=== PATIENT | female | born 1990 | race African-American/Black ===

== ENCOUNTER 2016-04-30 21:05 | Emergency (ER) | payer OTHER ==
--- NOTE | 2016-04-30 21:32 | PDOC ---
Rapid Medical Evaluation Time Seen by Provider: 04/30/16 21:08 Medical Evaluation: 04/30/16 21:26 I have performed a brief in-person evaluation of this patient. Ms. Parmar is a 25 yo F h/o PCOS (s/p right oophorectomy due to hemorrhage May 2015), GERD presenting with a complaint of vaginal pain and bleeding No trauma Symptoms began in the middle of the day Had some discharge, thought it was a yeast infection She tried using topical cream to treat This did not help, but rather worsened She began spotting today which caused her concern (+) sexually active (-) STD Began 2 days ago Unsure if she is LMP: 04/09 Pertinent physical exam findings: No lower abdominal tenderness to palpation I have ordered the following: The patient will proceed to the ED for further evaluation.
[2016-04-30 21:43] VITALS: BP 107/88; PULSE 103; TEMP 98.2; BMI 23.0
[2016-04-30] MEDS ORDERED: AZITHROMYCIN 250 MG TABLET (FP) PO ONE (23:02)
--- NOTE | 2016-04-30 23:12 | PDOC ---
History of Present Illness - General Chief Complaint: Vaginal Bleeding Stated Complaint: PAIN Time Seen by Provider: 04/30/16 21:08 - History of Present Illness Initial Comments: 04/30/16 23:03 CHIEF COMPLAINT: vaginal bleeding/discharge/pain HISTORY OF PRESENT ILLNESS: 25 yo F with hx of PCOS, R oopherectomy, GERD, ADHD presents to ED with vaginal pain/irritation x 2 days and bleeding today. Patient states she started feeling irritation and itching two days ago and thought it was a yeast infection. She used Monistat yesterday but with no relief, "in fact it was worse." Patient states she had some spotting today and was concerned. Her LMP was 04/09, she is not using control and she is sexually active with one partner. She denies any urinary frequency, pain, hematuria. PAST MEDICAL HISTORY: as per HPI FAMILY HISTORY: Denies SOCIAL HISTORY:Denies tobacco, alcohol, illicit drug use. SURGICAL HISTORY: Denies ALLERGIES: Sulfa REVIEW OF SYSTEMS General/Constitutional: Denies fever or chills. Denies weakness, weight change. HEENT: Denies change in vision. Denies ear pain or discharge. Denies sore throat. Cardiovascular: Denies chest pain or shortness of breath. Respiratory: Denies cough, wheezing, or hemoptysis. Gastrointestinal: Denies nausea, vomiting, diarrhea or constipation. Denies rectal bleeding. Genitourinary: Minimal vaginal bleeding today. Vaginal pain/irritation x 2 days. Denies dysuria, frequency, or change in urination. Musculoskeletal: Denies joint or muscle swelling or pain. Denies neck or back pain. Skin and breasts: Denies rash or easy bruising. Neurologic: Denies headache, vertigo, loss of consciousness, or loss of sensation. PHYSICAL EXAM General Appearance: Well-appearing, appropriately dressed. No apparent distress , no intoxication. HEENT: EOMI, PERRLA, normal ENT inspection, normal voice, TMs normal, pharynx normal. No conjunctival pallor. No photophobia, scleral icterus. Neck: Supple. Trachea midline. No tenderness, rigidity, carotid bruit, stridor , lymphadenopathy, or thyromegaly. Respiratory/Chest: Lungs CTAB. Cardiovascular: RRR. S1, S2. Gastrointestinal/Abdominal: Normal bowel sounds. Abdomen soft, non-distended. No tenderness or rebound tenderness. No organomegaly, pulsatile mass, guarding , hernia, hepatomegaly, splenomegaly. Pelvic: Positive chandelier's sign. No lesions, excoriations, or fissures. External genitalia normal without lesions. Vaginal vault with copious thick, yellow discharged tinged with blood. Cervix is long and closed. Uterus is nontender and normal in size. Mild left adnexal tenderness. Lymphatic: No adenopathy, tenderness. Musculoskeletal/Extremities: Normal inspection. FROM of all extremities, normal capillary refill. Pelvis Stable. No CVA tenderness. No tenderness to extremities, pedal edema, swelling, erythema or deformity. Integumentary: Appropriate color, dry, warm. No cyanosis, erythema, jaundice or rash Neurologic: spanish instructor II-XII intact. Fully oriented, alert. Appropriate mood/affect. Motor strength 5/5. No appreciable EOM palsy, facial droop or sensory deficit. 05/01/16 00:20 Past History - Past Medical History Allergies/Adverse Reactions: Allergies Allergy/AdvReac Type Severity Reaction Status Date / Time Sulfa (Sulfonamide Allergy Verified 04/30/16 21:27 Antibiotics) Home Medications: Ambulatory Orders Atomoxetine HCl [Strattera] 80 mg PO DAILY 04/30/16 Dexlansoprazole [Dexilant] 60 mg PO DAILY 04/30/16 GI Disorders: Yes (gerd) Other medical history: pcos - Psycho/Social/Smoking Cessation Hx Suicidal Ideation: No Smoking History: Never smoked *Physical Exam - Vital Signs Last Vital Signs Temp Pulse Resp BP Pulse Ox 98.2 F 103 H 18 107/88 103 H 04/30/16 21:29 04/30/16 21:29 04/30/16 21:29 04/30/16 21:29 04/30/16 21:29 ED Treatment Course - ADDITIONAL ORDERS Additional order review: Laboratory Results 04/30/16 22:00 Urine HCG, Qual Negative - RADIOLOGY Radiology Studies Ordered: Category Date Time Status TRANSVAGINAL ULTRASOUND US [US] Stat Ultrasound 04/30/16 23:01 Ordered Medical Decision Making - Medical Decision Making 04/30/16 23:12 25 yo F with hx of PCOS, R oopherectomy, GERD, ADHD presents to ED with vaginal pain/irritation x 2 days and minimal bleeding today. -UA, UCx, UPreg Patient is marked tender on pelvic exam with positive Chandelier's sign, will treat empirically for PID. -250 mg ceftriaxone -1g Azithromycin In addition patient has thick, white/yellow curd-liked discharge to vaginal vault. Discharge due to possible yeast infection vs monistat use. Will treat for vaginal candidiasis. -150 mg fluconazole Given patient's hx of R oopherectomy secondary to hemorrhage, will eval with U/ S to r/o ovarian pathology. -TV U/S Patient declines TV U/S, states she has too much pain for another intravaginal exam. Will change to pelvic U/S. -Pelvic U/S. Labs: UA: +RBC, otherwise unremarkable 05/01/16 01:34 Ultrasound results: FINDINGS: Transabdominal pelvic ultrasound:Uterus is anteverted and measures 9.0centimeters in length. The endometrium is 2millimeters in thickness which is normal. There are no fibroids. Left ovary measures 4.0centimeters in length contains a 3.0 cm simple cyst but demonstrates normal flow. There is no significant free fluid. Pelvic duplex: There is normal arterial and venous flow in the left ovary. IMPRESSION: 3 cm simple left ovarian cyst without torsion or free fluid. Read by: Tc Miller MD Advised patient to f/u with fleet service manager this week. Advised patient of signs and symptoms for return to ER; patient verbalized understanding and agrees to plan. *DC/Admit/Observation/Transfer Diagnosis at time of Disposition: Candidiasis of vagina, Acute infection of female upper reproductive tract - Discharge Dispostion Disposition: HOME Condition at time of disposition: Stable Admit: No - Patient Instructions Printed Discharge Instructions: DI for Pelvic Inflammatory Disease, DI for Vaginal Yeast Infection Additional Instructions: You were treated today for both pelvic inflammatory disease and a yeast infection. Please follow up with your records management associate by the end of the week. If you experience severe vaginal bleeding (more than one soaked pad an hour), severe pain to one side, fever, nausea, vomiting, diarrhea, or any new or worsening symptoms, please return to the ER.
[2016-04-30 23:46] LABS: URINE APPEARANCE SLCLOUDY; URINE BILIRUBIN NEGATIVE (NEGATIVE); URINE BLOOD NEGATIVE (NEGATIVE); URINE COLOR LTYELLOW; URINE GLUCOSE (UA) NEGATIVE (NEGATIVE); URINE KETONE NEGATIVE (NEGATIVE); URINE NITRITE NEGATIVE (NEGATIVE); URINE PROTEIN NEGATIVE (NEGATIVE); URINE UROBILINOGEN NEGATIVE E.U./dl (0.2-1.0)
[2016-04-30 23:48] LABS: URINE LEUK ESTERASE 3+ (NEGATIVE)
[2016-04-30 23:53] LABS: URINE BACTERIA MODERATE /hpf (NONE SEEN); URINE MUCUS RARE; URINE RBC 5 /hpf (0-3); URINE WBC 3 /hpf (3-5); YEAST FEW
[2016-05-01] MEDS ORDERED: FLUCONAZOLE 150 MG TABLET PO ONE (00:19)
--- NOTE | 2016-05-01 00:44 | PDOC ---
[id number] 107/88 103 H 04/30/16 21:29 04/30/16 21:29 04/30/16 21:29 04/30/16 21:29 04/30/16 21:29 ED Treatment Course - ADDITIONAL ORDERS Additional order review: Laboratory Results 04/30/16 04/30/16 23:22 22:00 Urine Color Ltyellow Urine Appearance Slcloudy Urine pH 5.0 Ur Specific [place] 1.023 Urine Protein Negative Urine Glucose (UA) Negative Urine Ketones Negative Urine Blood Negative Urine Nitrite Negative Urine Bilirubin Negative Urine Urobilinogen Negative Ur Leukocyte Esterase 3+ H Urine RBC 5 Urine WBC 3 Ur Epithelial Cells Rare Urine Bacteria Moderate Urine Mucus Rare Urine Yeast Few Urine HCG, Qual Negative Medical Decision Making - Medical Decision Making 05/01/16 00:42 agree with care from DOMINIK Cuevas *DC/Admit/Observation/Transfer Diagnosis at time of Disposition: Vaginal candidiasis, Pelvic inflammatory disease (PID) - Discharge Dispostion Disposition: HOME Condition at time of disposition: Stable - Referrals Referrals: STAFF,NOT ON [Primary Care Provider] - - Patient Instructions Printed Discharge Instructions: DI for Pelvic Inflammatory Disease, DI for Vaginal Yeast Infection Additional Instructions: You were treated today for both pelvic inflammatory disease and a yeast infection. Please follow up with your machine tank operator by the end of the week. If you experience severe vaginal bleeding (more than one soaked pad an hour), severe pain to one side, fever, nausea, vomiting, diarrhea, or any new or worsening symptoms, please return to the ER.
[2016-05-01] MEDS ORDERED: FLUCONAZOLE 100 MG TABLET (UD) ONE (00:57)
[2016-05-01] MEDS ORDERED: AZITHROMYCIN 250 MG TABLET (FP) ONE (01:09)
[2016-05-01] MEDS ORDERED: LIDOCAINE HCL 1%, 10 MG/ML (50 mL VIAL) SQ ONE (01:14)
[2016-05-01] MEDS ORDERED: LIDOCAINE HCL/PF 1% SDV 5ML VIAL ONE (01:19)
== END 2016-05-01 01:51 | disposition home or self-care (01) ==
LOC: JER 21:05
DX: K21.9 Gastro-esophageal reflux disease without esophagitis (principal); B37.3 Candidiasis of vulva and vagina; E28.2 Polycystic ovarian syndrome; F90.9 Attention-deficit hyperactivity disorder, unspecified type
CPT/HCPCS: 36415; 76856-TC; 81003; 81015; 84703; 87086; 87491; 87591; 99281-25